=== PATIENT | male | born 1965 | race Caucasian/White ===

== ENCOUNTER 2018-05-30 09:03 | Inpatient (IN) ==
[2018-05-30 09:31] LABS: Baso # (Auto) 0.1 th/mm3 (0.0-0.2); Baso % (Auto) 1.1 % (0.0-2.0); Eos # (Auto) 0.2 th/mm3 (0.0-0.4); Eos % (Auto) 2.3 % (0.0-4.0); Hematocrit 48.5 % (39.0-51.0); Hemoglobin 16.9 gm/dL (13.0-17.0); Lymph # (Auto) 2.1 th/mm3 (1.0-4.8); Lymph % (Auto) 25.4 % (9.0-44.0); Mean Corpuscular HGB Conc 34.8 % (32.0-36.0); Mean Corpuscular Hemoglobin 31.1 pg (27.0-34.0); Mean Corpuscular Volume 89.4 fL (80.0-100.0); Mean Platelet Volume 9.5 fL (7.0-11.0); Mono # (Auto) 0.7 th/mm3 (0.0-0.9); Mono % (Auto) 8.1 % (0.0-8.0); Neut # (Auto) 5.3 th/mm3 (1.8-7.7); Neut % (Auto) 63.1 % (16.0-70.0); Platelet Count 215 th/mm3 (150-450); Red Blood Count 5.42 mil/mm3 (4.50-5.90); Red Cell Distribution Width 13.5 % (11.6-17.2); White Blood Count 8.4 th/mm3 (4.0-11.0)
--- NOTE | 2018-05-30 09:44 | XR ---
EXAM DATE: 05/30/2018 9:40 AM EDT AGE/SEX: 53 years / Male INDICATIONS: . Chest pressure, short of breath. CLINICAL DATA: This is the patient's initial encounter. Patient reports that signs and symptoms have been present for 2 weeks and indicates a pain score of 4/10. MEDICAL/SURGICAL HISTORY: None. None. COMPARISON: [facility], XR CHEST PA AND LAT, 10/27/2017. . FINDINGS: The lungs are clear without infiltrate, nodule, or mass. There is no appreciable pleural effusion fo r technique. Heart and mediastinum are unremarkable. CONCLUSION: No acute cardiopulmonary disease. Electronically signed by: Fausto Liu MD 05/30/2018 9:43 AM EDT
[2018-05-30 09:53] LABS: Blood Urea Nitrogen 14 mg/dL (7-18); Calcium 9.9 mg/dL (8.5-10.1); Carbon Dioxide 26.5 meq/L (21.0-32.0); Glucose,Random 197 mg/dL (74-106); Magnesium 2.2 mg/dL (1.5-2.5)
[2018-05-30 09:56] LABS: Glomerular Filtration Rate 70 mL/min (>89)
[2018-05-30 10:01] LABS: Anion Gap 9 meq/L (5-15); Chloride 105 meq/L (98-107); Potassium 3.9 meq/L (3.5-5.1); Sodium 140 meq/L (136-145)
[2018-05-30 10:08] LABS: Platelet Estimate Normal (Normal); Platelet Morphology Normal (Normal)
[2018-05-30 10:14] LABS: Activated Partial Thrombo Time 27.2 sec (24.3-30.1); Prothrombin Time 10.3 sec (9.8-11.6)
[2018-05-30 10:29] LABS: D-Dimer 0.44 mg/L FEU (0.00-0.50)
--- NOTE | 2018-05-30 11:24 | ED ---
HPI General Chief complaint: Chest Pain Stated complaint: Chest Pain/SOB x 3 weeks Time Seen by Provider: 05/30/18 09:11 Source: patient and family Mode of arrival: ambulatory History of Present Illness HPI narrative: 53yM presenting with chest pain. The patient states that over the past several weeks he's been having intermittent chest "pressure"; this morning, he was going to work when he began to have sudden-onset substernal chest "pressure" which is non-radiating, intermittent, not made better or worse by anything, associated with diaphoresis and dyspnea, lasting minutes to hours and resolving on its own. Denies fever, cough, nausea or vomiting. He has been recently worked up for TIA symptoms and was referred to a head batcher, but has not been seen yet. No recent travel, immobilization, surgery, or history of VTE. Family history significant for mother with CAD/ AL in her 50s and father with CAD in 60s. Related Data Home Medications Medication Instructions Recorded Confirmed aspirin [Aspir-81] 81 mg PO DAILY 05/30/18 05/30/18 ibuprofen 800 mg PO QID PRN 05/30/18 05/30/18 quetiapine 25 mg PO HS 05/30/18 05/30/18 Allergies Allergy/AdvReac Type Severity Reaction Status Date / Time sumatriptan [From Imitrex] Allergy Anaphylaxis Verified 05/30/18 09:39 lactose AdvReac Diarrhea Verified 05/30/18 09:39 Review of Systems Except as stated in HPI: all other systems reviewed are negative Constitutional Reports excessive sweating Eyes Denies blurry vision ENT Denies nasal congestion Cardiovascular Reports chest pain Respiratory Reports dyspnea Gastrointestinal Denies nausea Genitourinary Denies dysuria Musculoskeletal Denies numbness Neurologic Denies confusion Psychiatric Denies confusion PMFSH History History Provided By: Patient Medical History Medical History Diabetes (Acute) TIA (transient ischemic attack) (Acute) Social History Social History Recent Travel in [facility] within the Last 8 Weeks: No Recent Out of Country Travel within the Last 8 Weeks: No Exam Const Other: Diaphoretic, appears anxious HEN[place] Head: normocephalic and atraumatic Face and sinus: normal facial exam Eyes General: appearance normal, both eyes and all related structures Pupils: PERRL Chest Chest: normal inspection of the chest Resp Effort & Inspection: normal respiratory effort Auscultation: no rhonchi and no wheezes Cardio Rate: regular rate Rhythm: regular rhythm GI Inspection: non-distended Palpation: soft and nontender Skin General: no rashes or lesions noted Neuro General: alert, awake, oriented x3 and no focal motor deficits Extrem Other: No lower extremity edema Psych Affect: normal affect Course Initial Documented Vital Signs Temperature 99.1 F 05/30/18 09:15 Pulse Rate 102 H 05/30/18 09:15 Respiratory Rate 18 05/30/18 09:15 Blood Pressure 127/74 05/30/18 09:15 Pulse Oximetry 97 05/30/18 09:15 Last Documented Vital Signs Temperature 99.1 F 05/30/18 09:15 Pulse Rate 85 05/30/18 09:21 Respiratory Rate 18 05/30/18 09:15 Blood Pressure 127/74 05/30/18 09:15 Pulse Oximetry 94 L 05/30/18 09:21 Clinical Decision Support HEART Score Questions History: Moderately suspicious EKG: Non-specific repolarization disturbance Age: 45-64 years Risk Factors: 1-2 Risk Factors Initial Troponin: Normal Limit Heart Score HEART Score: 4 Wells' Criteria Questions Clinical Signs and Symptoms of DVT: No PE is primary diagnosis or equally likely: No Heart Rate greater than 100: Yes Immobilized at least 3 days or Surgery in previous 4 weeks: No Previous, objectively diagnosed PE or DVT: No Hemoptysis: No Malignancy with treatment within 6 months or palliative: No Wells' Criteria Score Wells' Criteria Score: 1.5 Medical Decision Making MDM Narrative Medical decision making narrative: Assessment: 53yM presenting with chest pain Plan: EKG and monitor Labs, including trop CXR ASA (patient already took 81 mg prior to arrival) Nitro Reassess Addendum: Patient's HEART score is 4, initial trop negative, reports improvement in pain after receiving SL nitro x 1 dose. Will give 1/2" nitropaste. I discussed the results of all labs and imaging with the patient as well as plan to keep him for chest pain obs/ serial troponins/ cardiac monitoring; he understands and agrees. Case discussed with GOGO KELLY, patient to be observed under Dr. Kahn. Differential Diagnosis Differential Diagnosis: Differential diagnosis includes, but is not limited to: ACS, arrhythmia, pneumonia, pleuritis, GERD Lab Data Lab results reviewed: Yes I reviewed the patient's lab results. Result diagrams: 05/30/18 09:17 05/30/18 09:17 Lab Results 05/30/18 05/30/18 05/30/18 Range/Units 09:17 09:17 09:17 CBC w Diff Slide review pending WBC 8.4 (4.0-11.0) th/mm3 RBC 5.42 (4.50-5.90) mil/mm3 Hgb 16.9 (13.0-17.0) gm/dL Hct 48.5 (39.0-51.0) % MCV 89.4 (80.0-100.0) fL MCH 31.1 (27.0-34.0) pg MCHC 34.8 (32.0-36.0) % RDW 13.5 (11.6-17.2) % Plt Count 215 (150-450) th/mm3 MPV 9.5 (7.0-11.0) fL Neut % (Auto) 63.1 (16.0-70.0) % Lymph % (Auto) 25.4 (9.0-44.0) % Chambers % (Auto) 8.1 H (0.0-8.0) % Eos % (Auto) 2.3 (0.0-4.0) % Baso % (Auto) 1.1 (0.0-2.0) % Neut # (Auto) 5.3 (1.8-7.7) th/mm3 Lymph # (Auto) 2.1 (1.0-4.8) th/mm3 Chambers # (Auto) 0.7 (0.0-0.9) th/mm3 Eos # (Auto) 0.2 (0.0-0.4) th/mm3 Baso # (Auto) 0.1 (0.0-0.2) th/mm3 WBC Differential . Diff Scan Auto diff confirmed Differential Comment . Platelet Estimate Normal (Normal) Platelet Morphology Normal (Normal) PT 10.3 (9.8-11.6) sec INR 1.0 Ratio APTT 27.2 (24.3-30.1) sec D-Dimer Quant (PE/DVT) 0.44 (0.00-0.50) mg/L FEU Sodium 140 (136-145) meq/L Potassium 3.9 (3.5-5.1) meq/L Chloride 105 (98-107) meq/L Carbon Dioxide 26.5 (21.0-32.0) meq/L Anion Gap 9 (5-15) meq/L BUN 14 (7-18) mg/dL Creatinine 1.10 (0.60-1.30) mg/dL Estimated GFR 70 L (>89) mL/min Random Glucose 197 H (74-106) mg/dL Calcium 9.9 (8.5-10.1) mg/dL Magnesium 2.2 (1.5-2.5) mg/dL Troponin I Less than 0.02 L (0.02-0.05) ng/mL Imaging Data Radiologist's impression: Chest X-Ray 05/30/18 09:21 CONCLUSION: No acute cardiopulmonary disease. ECG Data Interpretation: Rate: 100 BPM Rhythm: Sinus [place]: Normal Intervals: LAFB, QTc 385 ms Q waves: II, III, aVF T waves: Inverted in III ST segments: No elevations or depressions Impression: Non-specific EKG, no changes as compared to EKG from 12/27/2012. Discharge Plan Discharge Disposition Patient Disposition: 30 Still Patient Discharge Condition Condition: Stable Discharge Details Diagnosis: Chest pain Physicians Team ED Provider: Dyana Hughes Primary Care Provider: Francisco Burnham Rxs /Orders / Referrals /Forms Prescriptions: No Action quetiapine 25 mg Tablet 25 mg PO HS RF: 0 aspirin [Aspir-81] 81 mg Tablet,Delayed Release (Dr/Ec) 81 mg PO DAILY RF: 0 ibuprofen 800 mg Tablet 800 mg PO QID PRN (Reason: Pain) RF: 0 Discharge Instructions Patient Printed Instructions: Chest Pain (ED) Status ED Status: With Doctor
--- NOTE | 2018-05-30 12:09 | P.HP ---
History of Present Illness Primary Care Physician: Francisco Burnham Inpatient Certification: I certify that the inpatient services were ordered in accordance with Medicare regulations governing the order. This includes certification that hospital inpatient services are reasonable and necessary and in the case of services not specified as inpatient-only under 42 CFR 419.22(n), that they are appropriately provided as inpatient services in accordance to with the 2-midnight benchmark under 43 CFR 412.3(e) PMFSH - History History Provided By: Patient - Medical History Medical History: Medical History (Last Updated 05/30/18 @ 11:27 by Dyana Hughes DO) Diabetes TIA (transient ischemic attack) - Tobacco History Smoking Status: Never smoker - Alcohol History How Often Do You Have a Drink Containing Alcohol: Never - Substance Use History Substance History: No History of Abuse - Travel History Recent Travel in the [place] Within the Last 8 Weeks: No Recent Travel Out of the Country Within the Last 8 Weeks: No - Immunization History Tetanus Immunization: Unsure Hx Influenza Vaccine This Season: No Medications and Allergies Active Medications: Active Medications Aspirin (Aspirin) 325 mg PO DAILY ALMA Nitroglycerin (Nitrostat Sl) 0.4 mg SL Q5M PRN PRN Reason: CHEST PAIN Quetiapine Fumarate (Seroquel) 25 mg PO HS ALMA Sodium Chloride (Ns Flush) 2 ml IV.FLUSH UNSCH PRN PRN Reason: FLUSH AFTER USING IV ACCESS Sodium Chloride (Ns Flush) 2 ml IV.FLUSH BID ALMA Sodium Chloride (Ns Flush) 2 ml IV.FLUSH PRN PRN PRN Reason: FLUSH AFTER USING IV ACCESS Sodium Chloride (Ns Flush) 2 ml IV.FLUSH BID ALMA Sodium Chloride (Ns Flush) 2 ml IV.FLUSH PRN PRN PRN Reason: FLUSH AFTER USING IV ACCESS Allergies Allergy/AdvReac Type Severity Reaction Status Date / Time sumatriptan [From Imitrex] Allergy Anaphylaxis Verified 05/30/18 09:39 lactose AdvReac Diarrhea Verified 05/30/18 09:39 Home Medications Medication Instructions Recorded Confirmed Type aspirin [Aspir-81] 81 mg PO DAILY 05/30/18 05/30/18 History ibuprofen 800 mg PO QID PRN 05/30/18 05/30/18 History quetiapine 25 mg PO HS 05/30/18 05/30/18 History Exam Vital signs: Vital Signs 05/30/18 09:15 05/30/18 09:21 05/30/18 12:04 Temperature 99.1 F Pulse Rate 102 H 85 82 Respiratory Rate 18 16 Blood Pressure 127/74 143/76 H Pulse Oximetry 97 94 L 97 Intake & Output 05/29/18 05/30/18 05/30/18 18:59 06:59 18:59 Weight 125 kg Results - Labs CBC & Chem 7: 05/30/18 09:17 05/30/18 09:17 Labs: Laboratory Results - last 24 hr 05/30/18 05/30/18 05/30/18 09:17 09:17 09:17 CBC w Diff Slide review pending WBC 8.4 RBC 5.42 Hgb 16.9 Hct 48.5 MCV 89.4 MCH 31.1 MCHC 34.8 RDW 13.5 Plt Count 215 MPV 9.5 Neut % (Auto) 63.1 Lymph % (Auto) 25.4 [place] % (Auto) 8.1 H Eos % (Auto) 2.3 Baso % (Auto) 1.1 Neut # (Auto) 5.3 Lymph # (Auto) 2.1 [place] # (Auto) 0.7 Eos # (Auto) 0.2 Baso # (Auto) 0.1 WBC Differential . Diff Scan Auto diff confirmed Differential Comment . Platelet Estimate Normal Platelet Morphology Normal PT 10.3 INR 1.0 APTT 27.2 D-Dimer Quant (PE/DVT) 0.44 Sodium 140 Potassium 3.9 Chloride 105 Carbon Dioxide 26.5 Anion Gap 9 BUN 14 Creatinine 1.10 Estimated GFR 70 L Random Glucose 197 H Calcium 9.9 Magnesium 2.2 Troponin I Less than 0.02 L - Imaging Impressions Chest X-Ray 05/30/18 09:21 CONCLUSION: No acute cardiopulmonary disease. Caprini VTE Risk Assessment Caprini Risk Assessment Model: Point Value = 1 Point Value = 2 Point Value = 3 Point Value = 5 Age 41-60 Minor surgery BMI > 25 kg/m2 Swollen legs Varicose veins or History of unexplained or recurrent spontaneous Oral contraceptives or hormone replacement Sepsis (< 1 month) Serious lung disease, including pneumonia (< 1 month) Abnormal pulmonary function Acute myocardial infarction Congestive heart failure (< 1 month) History of inflammatory bowel disease Medical patient at bed rest Age 61-74 Arthroscopic surgery Major open surgery (> 45 min) Laparoscopic surgery (> 45 min) Malignancy Confined to bed (> 72 hours) Immobilizing plaster cast Central venous access Age >= 75 History of VTE Family history of VTE Factor V Leiden Prothrombin [id number] Lupus anticoagulant Anticardiolipin antibodies Elevated serum homocysteine Heparin-induced thrombocytopenia Other congenital or acquired thrombophilia Stroke (< 1 month) Elective arthroplasty Hip, pelvis, or leg fracture Acute spinal cord injury (< 1 month) Prophylaxis Regimen: Total Risk Factor Score Risk Level Prophylaxis Regimen 0-1 Low Early ambulation 2 Moderate Order ONE of the following: *Sequential Compression Device (SCD) *Heparin 5000 units SQ BID 3-4 Higher Order ONE of the following medications: *Heparin 5000 units SQ TID *Enoxaparin/Lovenox 40 mg SQ daily (WT < 150 kg, CrCl > 30 mL/min) *Enoxaparin/Lovenox 30 mg SQ daily (WT < 150 kg, CrCl > 10-29 mL/min) *Enoxaparin/Lovenox 30 mg SQ BID (WT < 150 kg, CrCl > 30 mL/min) AND/OR *Sequential Compression Device (SCD) 5 or more Highest Order ONE of the following medications: *Heparin 5000 units SQ TID (Preferred with Epidurals) *Enoxaparin/Lovenox 40 mg SQ daily (WT < 150 kg, CrCl > 30 mL/min) *Enoxaparin/Lovenox 30 mg SQ daily (WT < 150 kg, CrCl > 10-29 mL/min) *Enoxaparin/Lovenox 30 mg SQ BID (WT < 150 kg, CrCl > 30 mL/min) AND *Sequential Compression Device (SCD)
--- NOTE | 2018-05-30 12:46 | P.HPIM ---
History of Present Illness Primary Care Physician: Francisco Burnham Chief Complaint: Chest discomfort History of Present Illness: Patient is a 53-year-old gentleman with a history of diverticulitis, hepatitis a and fatty liver, migraine and anxiety who presents to the emergency room department with a complaint of chest pain. He states the pain started initially 2 months ago with episodes of mid substernal chest pressure which is nonradiating and last up to 2 hours. The episodes are associated with shortness of breath and heart racing. He denies any radiation of the pressure or pain, diaphoresis. He has such episodes occur every day there does not appear to be any exertional component. Patient works out side with heavy equipment and has no chest pain correlating with these activities. The chest pain appears to occur at rest intermittently. It resolved spontaneously usually and today it was relieved with Nitropaste. It was not improved with nitro sublingual. On review of his EKG appears to be normal sinus rhythm without ischemic changes and cardiac troponins are negative so far, my review of his chest x-ray there is no cardiopulmonary acute finding. Patient is recommended for further observation due to atypical chest pain - Diagnosis (1) Atypical chest pain (2) SOB (shortness of breath) (3) Musculoskeletal pain (4) Obesity (BMI 30-39.9) (5) Anxiety Inpatient Certification: I certify that the inpatient services were ordered in accordance with Medicare regulations governing the order. This includes certification that hospital inpatient services are reasonable and necessary and in the case of services not specified as inpatient-only under 42 CFR 419.22(n), that they are appropriately provided as inpatient services in accordance to with the 2-midnight benchmark under 43 CFR 412.3(e) Review of Systems All other systems reviewed negative except as stated in [facility]PI [facility] - History History Provided By: Patient - Medical History Medical History: Medical History (Last Updated 05/30/18 @ 12:44 by Yu Winkler MD) Injury of left lower arm (Acute) Anxiety Diabetes Diverticulitis Fatty liver Hepatitis Joint pain Migraine TIA (transient ischemic attack) - Family History Family History: Family History (Last Updated 05/30/18 @ 12:45 by Yu Winkler MD) Other Brain aneurysm CAD (coronary artery disease) - Tobacco History Smoking Status: Former smoker (30 pack year, quit 3 yrs ago) - Alcohol History How Often Do You Have a Drink Containing Alcohol: Never - Substance Use History Substance History: No History of Abuse - Travel History Recent Travel in the [place] Within the Last 8 Weeks: No Recent Travel Out of the Country Within the Last 8 Weeks: No - Immunization History Tetanus Immunization: Unsure Hx Influenza Vaccine This Season: No Medications and Allergies Active Medications: Active Medications Aspirin (Aspirin) 325 mg PO DAILY ALMA Nitroglycerin (Nitrostat Sl) 0.4 mg SL Q5M PRN PRN Reason: CHEST PAIN Quetiapine Fumarate (Seroquel) 25 mg PO HS ALMA Sodium Chloride (Ns Flush) 2 ml IV.FLUSH UNSCH PRN PRN Reason: FLUSH AFTER USING IV ACCESS Sodium Chloride (Ns Flush) 2 ml IV.FLUSH BID ALMA Sodium Chloride (Ns Flush) 2 ml IV.FLUSH PRN PRN PRN Reason: FLUSH AFTER USING IV ACCESS Sodium Chloride (Ns Flush) 2 ml IV.FLUSH BID ALMA Sodium Chloride (Ns Flush) 2 ml IV.FLUSH PRN PRN PRN Reason: FLUSH AFTER USING IV ACCESS Allergies Allergy/AdvReac Type Severity Reaction Status Date / Time sumatriptan [From Imitrex] Allergy Anaphylaxis Verified 05/30/18 09:39 lactose AdvReac Diarrhea Verified 05/30/18 09:39 Home Medications Medication Instructions Recorded Confirmed Type aspirin [Aspir-81] 81 mg PO DAILY 05/30/18 05/30/18 History ibuprofen 800 mg PO QID PRN 05/30/18 05/30/18 History quetiapine 25 mg PO HS 05/30/18 05/30/18 History Exam Vital signs: Vital Signs 05/30/18 09:15 05/30/18 09:21 05/30/18 12:04 Temperature 99.1 F Pulse Rate 102 H 85 82 Respiratory Rate 18 16 Blood Pressure 127/74 143/76 H Pulse Oximetry 97 94 L 97 Intake & Output 05/29/18 05/30/18 05/30/18 18:59 06:59 18:59 Weight 125 kg Narrative: GENERAL: Patient calm resting and without complaints SKIN: Warm and dry. No rashes or ecchymotic injuries EYES: Pupils equal and round. No scleral icterus. No injection or drainage. ENT: External ear exam normal. No acute nasal bleeding or discharge. Mucous membranes pink and moist. CARDIOVASCULAR: Regular rate and rhythm. No murmurs gallops or rubs appreciated RESPIRATORY: Good air flow and effort without accessory muscle use. Clear to auscultation. Breath sounds equal bilaterally. GASTROINTESTINAL: Abdomen soft, non-tender, nondistended. Hepatic and splenic margins not palpable. MUSCULOSKELETAL: Extremities without clubbing, cyanosis, or edema. No obvious deformities. NEUROLOGICAL: Awake and alert. No obvious cranial nerve deficits. Motor grossly within normal limits. Five out of 5 muscle strength in the arms and legs. Normal speech. Results - Labs CBC & Chem 7: 05/30/18 09:17 05/30/18 09:17 Labs: Short CBC 05/30/18 Range/Units 09:17 WBC 8.4 (4.0-11.0) th/mm3 Hgb 16.9 (13.0-17.0) gm/dL Hct 48.5 (39.0-51.0) % Plt Count 215 (150-450) th/mm3 BMP 05/30/18 09:17 Sodium 140 Potassium 3.9 Chloride 105 Carbon Dioxide 26.5 BUN 14 Creatinine 1.10 Calcium 9.9 Cardiac Enzymes 05/30/18 Range/Units 09:17 Troponin I Less than 0.02 L (0.02-0.05) ng/mL - Imaging Impressions Chest X-Ray 05/30/18 09:21 CONCLUSION: No acute cardiopulmonary disease. Caprini VTE Risk Assessment Caprini VTE Risk Assessment: No/Low Risk (score <= 1) Caprini Risk Assessment Model: Point Value = 1 Point Value = 2 Point Value = 3 Point Value = 5 Age 41-60 Minor surgery BMI > 25 kg/m2 Swollen legs Varicose veins or History of unexplained or recurrent spontaneous Oral contraceptives or hormone replacement Sepsis (< 1 month) Serious lung disease, including pneumonia (< 1 month) Abnormal pulmonary function Acute myocardial infarction Congestive heart failure (< 1 month) History of inflammatory bowel disease Medical patient at bed rest Age 61-74 Arthroscopic surgery Major open surgery (> 45 min) Laparoscopic surgery (> 45 min) Malignancy Confined to bed (> 72 hours) Immobilizing plaster cast Central venous access Age >= 75 History of VTE Family history of VTE Factor V Leiden Prothrombin [id number] Lupus anticoagulant Anticardiolipin antibodies Elevated serum homocysteine Heparin-induced thrombocytopenia Other congenital or acquired thrombophilia Stroke (< 1 month) Elective arthroplasty Hip, pelvis, or leg fracture Acute spinal cord injury (< 1 month) Prophylaxis Regimen: Total Risk Factor Score Risk Level Prophylaxis Regimen 0-1 Low Early ambulation 2 Moderate Order ONE of the following: *Sequential Compression Device (SCD) *Heparin 5000 units SQ BID 3-4 Higher Order ONE of the following medications: *Heparin 5000 units SQ TID *Enoxaparin/Lovenox 40 mg SQ daily (WT < 150 kg, CrCl > 30 mL/min) *Enoxaparin/Lovenox 30 mg SQ daily (WT < 150 kg, CrCl > 10-29 mL/min) *Enoxaparin/Lovenox 30 mg SQ BID (WT < 150 kg, CrCl > 30 mL/min) AND/OR *Sequential Compression Device (SCD) 5 or more Highest Order ONE of the following medications: *Heparin 5000 units SQ TID (Preferred with Epidurals) *Enoxaparin/Lovenox 40 mg SQ daily (WT < 150 kg, CrCl > 30 mL/min) *Enoxaparin/Lovenox 30 mg SQ daily (WT < 150 kg, CrCl > 10-29 mL/min) *Enoxaparin/Lovenox 30 mg SQ BID (WT < 150 kg, CrCl > 30 mL/min) AND *Sequential Compression Device (SCD) Assessment and Plan - Assessment (1) Atypical chest pain Code(s): R07.89 - Other chest pain Status: Acute Plan: Repeat serial troponin and EKG Follow-up on telemetry Likely nuclear stress test in a.m. Risk factors include obesity, family history of first-degree relative with premature cardiac disease, current aspirin use Other etiology could be costochondritis, GERD Medicines as needed for atypical chest pain prescribed such as nitro, morphine, oxygen, etc (2) SOB (shortness of breath) Code(s): R06.02 - Shortness of breath Status: Acute Plan: Etiology unclear, patient without edema, appears to have large abdomen which may contribute to shortness of breath while lying flat Continue to follow (3) Musculoskeletal pain Code(s): M79.1 - Myalgia Status: Acute Plan: Patient takes aspirin and ibuprofen He was told to avoid Tylenol We will try Ultram as needed to avoid gastric irritation (4) Obesity (BMI 30-39.9) Code(s): E66.9 - Obesity, unspecified Status: Acute Plan: Patient will require lifestyle modification with and improve exercise and diet Follow-up with primary care physician (5) Anxiety Code(s): F41.9 - Anxiety disorder, unspecified Status: Acute - Plan Discharge Planning: Pending stress test
[2018-05-30 13:11] LABS: Creatine Kinase 82 U/L (39-308)
[2018-05-30 15:58] LABS: Creatine Kinase 96 U/L (39-308)
--- NOTE | 2018-05-30 18:27 | ECG ---
Date Performed: 05/30/2018 Time Performed: 09:10:07 PTAGE: 53 years EKG: SINUS TACHYCARDIA PATTERN CONSISTENT WITH PULMONARY DISEASE LEFT ANTERIOR FASCICULAR BLOCK ABNORMAL ECG Compared to PREVIOUS TRACING , sinus rate is slightly faster. PREVIOUS TRACIN12/27/2012 18.45 DOCTOR: Javy Cueva Interpretating Date/Time 05/30/2018 18:25:11
[2018-05-30] MEDS: Acetaminophen 325 MG Tablet PO PRN (19:36)
[2018-05-30] MEDS: QUEtiapine 25 MG Tablet PO SCH (22:31)
[2018-05-31] MEDS: Aspirin 325 MG Tablet PO SCH (08:06)
[2018-05-31] MEDS ORDERED: Regadenoson Inj 0.4 MG/5 ML Syringe IV.PUSH ONE (10:13)
--- NOTE | 2018-05-31 11:46 | NM ---
EXAM DATE: 05/31/2018 11:29 AM EDT AGE/SEX: 53 years / Male INDICATIONS:Angina. . Substernal chest pain. CLINICAL DATA: This is the patient's initial encounter. Patient reports that signs and symptoms have been present for 1 day and indicates a pain score of 4/10. MEDICAL/SURGICAL HISTORY: Diabetes mellitus type II. Transient ischemic attack. None. COMPARISON: No prior exams available for comparison. DOSE: 11 mCi Tc 99m Myoview at rest 35 mCi [id number] at stress 0.4 mg Lexiscan STRESS SYMPTOMS: Short of breath and chest pain. EJECTION FRACTION: 53 % TECHNIQUE: The patient underwent pharmacologic stress with infusion of prescribed dose. Continuous ECG tracing was monitored during stress. Gated SPECT imaging was performed after stress and conventi onal SPECT imaging was performed at rest. The examination was performed on a SPECT/CT scanner, both attenuation and non-corrected datasets were reviewed. FINDINGS: Distribution: The maximum perfused segment at stress is in the posterior wall. Perfusion Study: The pattern of perfusion at stress demonstrates reduction in perfusion to the ante rior wall and parts of the anterolateral wall demonstrates redistribution the rest. Gated Study: There are intact wall motion and wall thickening without hypokinetic or dyskinetic segm ents. The ejection fraction is calculated at 53%. RISK CATEGORY: Intermediate (1-3 % Annual Mortality Rate) CONCLUSION: 1. Slight ischemia in the anterolateral wall. Electronically signed by: Fausto Liu MD 05/31/2018 11:45 AM EDT
--- NOTE | 2018-05-31 12:08 | P.PNIM ---
Subjective Interval history: She seen and evaluated in follow-up for atypical chest pain. Cardiac stress test is abnormal patient will require further cardiac evaluation. Discussed with patient and spouse Physical Exam Vital signs: Vital Signs 05/30/18 15:56 05/30/18 20:00 05/30/18 22:40 Temperature 97.5 F L 97.8 F Pulse Rate 78 76 85 Respiratory Rate 17 20 Blood Pressure 111/61 126/68 Pulse Oximetry 97 95 05/31/18 01:52 05/31/18 04:39 05/31/18 08:00 Temperature 97.4 F L 96.3 F L 97.6 F Pulse Rate 82 77 67 Respiratory Rate 20 20 21 Blood Pressure 114/56 L 101/51 L 127/76 Pulse Oximetry 97 97 99 Intake & Output 05/30/18 05/31/18 05/31/18 18:59 06:59 18:59 Intake Total 720 / 720 0 / 0 Balance 720 / 720 0 / 0 Weight 126.5 kg 126.5 kg Intake: Oral 720 / 720 0 / 0 Other: # Voids 3 2 # Bowel Movements 0 Narrative: GENERAL: Patient calm resting and without complaints SKIN: Warm and dry. No rashes or ecchymotic injuries EYES: Pupils equal and round. No scleral icterus. No injection or drainage. ENT: External ear exam normal. No acute nasal bleeding or discharge. Mucous membranes pink and moist. CARDIOVASCULAR: Regular rate and rhythm. No murmurs gallops or rubs appreciated RESPIRATORY: Good air flow and effort without accessory muscle use. Clear to auscultation. Breath sounds equal bilaterally. GASTROINTESTINAL: Abdomen soft, non-tender, nondistended. Hepatic and splenic margins not palpable. MUSCULOSKELETAL: Extremities without clubbing, cyanosis, or edema. No obvious deformities. NEUROLOGICAL: Awake and alert. No obvious cranial nerve deficits. Motor grossly within normal limits. Five out of 5 muscle strength in the arms and legs. Normal speech. Results - Labs CBC & Chem 7: 05/30/18 09:17 05/30/18 09:17 Laboratory Results - last 24 hr 05/30/18 05/30/18 12:38 15:16 Total Creatine Kinase 82 96 Troponin I Less than 0.02 L Less than 0.02 L - Imaging Impressions Myocardial Perfusion Scan Nuc Med 05/31/18 00:00 CONCLUSION: 1. Slight ischemia in the anterolateral wall. Assessment and Plan - Assessment (1) Atypical chest pain Code(s): R07.89 - Other chest pain Status: Acute Plan: Cardiac stress test abnormal, cardiac consultation pending for possible heart catheterization Continue supportive care (2) SOB (shortness of breath) Code(s): R06.02 - Shortness of breath Status: Acute Plan: EF on stress tests within normal limits, continue supportive care and oxygen as needed Patient rather sedentary lifestyle (3) Musculoskeletal pain Code(s): M79.1 - Myalgia Status: Acute Plan: Patient takes aspirin and ibuprofen He was told to avoid Tylenol Ultram as needed (4) Obesity (BMI 30-39.9) Code(s): E66.9 - Obesity, unspecified Status: Acute Plan: Patient will require lifestyle modification with and improve exercise and diet Follow-up with primary care physician (5) Anxiety Code(s): F41.9 - Anxiety disorder, unspecified Status: Acute - Plan Discharge Planning: Pending cardiac consultation
--- NOTE | 2018-05-31 16:38 | TR ---
Date Performed: 05/31/2018 Time Performed: 10:33:31 DOCTOR: Vashti Richard DRUG LIST: CLINICAL HISTORY: REASON FOR TEST: REASON FOR ENDING: OBSERVATION: CONCLUSION: Lexiscan stress test was performed under standard four minute protocol. Radionuclid e was injected one minute prior to ending the test. No electrocardiographic abormalities were present to suggest ischemia. Nuclear imaging and interpretation are pending. COMMENTS:
--- NOTE | 2018-05-31 21:05 | ECG ---
Date Performed: 05/30/2018 Time Performed: 15:13:12 PTAGE: 53 years EKG: Sinus rhythm INDETERMINATE AXIS LOW QRS VOLTAGE IN EXTREMITY LEADS LEFT ANTERIOR FASCICULAR BLOCK ABNORMAL ECG PREVIOUS TRACING : 05/30/2018 11.52 No significant change when compared with previous DOCTOR: Reece Pacheco Interpretating Date/Time 05/31/2018 21:03:45
--- NOTE | 2018-05-31 21:11 | ECG ---
Date Performed: 05/30/2018 Time Performed: 11:52:29 PTAGE: 53 years EKG: Sinus rhythm PATTERN CONSISTENT WITH PULMONARY DISEASE LEFT ANTERIOR FASCICULAR BLOCK ABNORMAL ECG PREVIOUS TRACING : 05/30/2018 09.10 No significant change when compared with previous DOCTOR: Reece Pacheco Interpretating Date/Time 05/31/2018 21:09:43
[2018-05-31] MEDS: Acetaminophen 325 MG Tablet PO PRN (22:21)
[2018-05-31] MEDS: QUEtiapine 25 MG Tablet PO SCH (22:23)
--- NOTE | 2018-06-01 08:01 | P.CONCA ---
<Peyman Caal - Last Filed: 06/01/18 08:25> History of Present Illness Primary Care Provider: Francisco Burnham Chief Complaint: Chest discomfort History of Present Illness: 53-year-old male with past medical history of possible TIAs who presented for chest pain. The patient states for the past couple months he has been having episodes of heavy chest pain with associated shortness of breath. Pain can occur while he is walking, but usually occurs at rest. Pain can last up to 15 20 minutes. Admitted to the chest pain center with unremarkable serial cardiac enzymes and EKGs. A Lexiscan was done which showed slight ischemia in the anterolateral wall and for this we are consulted. Patient are also quite concerned because patient has been having transient episodes of difficulty speaking as well. Review of Systems All other systems reviewed negative except as stated [facility] - History History Provided By: Patient, Family Member - Medical History Medical History: Medical History (Last Updated 05/30/18 @ 12:44 by Yu Winkler MD) Injury of left lower arm (Acute) Anxiety Diabetes Diverticulitis Fatty liver Hepatitis Joint pain Migraine TIA (transient ischemic attack) - Family History Family History: Family History (Last Updated 05/30/18 @ 12:45 by Yu Winkler MD) Other Brain aneurysm CAD (coronary artery disease) - Tobacco History Second Hand Smoke Exposure: No Smoking Status: Former smoker Number of Pack Years (if former smoker): 30 - Alcohol History How Often Do You Have a Drink Containing Alcohol: Never - Substance Use History Substance History: No History of Abuse - Travel History Recent Travel in the [place] Within the Last 8 Weeks: No Recent Travel Out of the Country Within the Last 8 Weeks: No - Immunization History Tetanus Immunization: Unsure Hx Influenza Vaccine This Season: No Medications and Allergies Allergies Allergy/AdvReac Type Severity Reaction Status Date / Time sumatriptan [From Imitrex] Allergy Anaphylaxis Verified 05/30/18 09:39 lactose AdvReac Diarrhea Verified 05/30/18 09:39 Home Medications Medication Instructions Recorded Confirmed Type aspirin [Aspir-81] 81 mg PO DAILY 05/30/18 05/30/18 History ibuprofen 800 mg PO QID PRN 05/30/18 05/30/18 History quetiapine 25 mg PO HS 05/30/18 05/30/18 History Active Medications: Active Medications Acetaminophen (Tylenol) 650 mg PO Q6H PRN PRN Reason: HEADACHE OR FEVER Last Admin: 05/31/18 22:21 Dose: 650 mg Aspirin (Aspirin) 325 mg PO DAILY [facility] Last Admin: 05/31/18 08:06 Dose: 325 mg Nitroglycerin (Nitrostat Sl) 0.4 mg SL Q5M PRN PRN Reason: CHEST PAIN Last Admin: 05/30/18 14:48 Dose: 0.4 mg Pantoprazole Sodium (Protonix) 40 mg PO DAILY [facility] Last Admin: 05/31/18 08:05 Dose: 40 mg Quetiapine Fumarate (Seroquel) 25 mg PO HS [facility] Last Admin: 05/31/18 22:23 Dose: Not Given Sodium Chloride (Ns Flush) 2 ml IV.FLUSH BID [facility] Last Admin: 05/31/18 22:21 Dose: 2 ml Sodium Chloride (Ns Flush) 2 ml IV.FLUSH PRN PRN PRN Reason: FLUSH AFTER USING IV ACCESS Exam Vital signs: Vital Signs 05/31/18 08:00 05/31/18 12:00 05/31/18 16:00 Temperature 97.6 F 97.7 F 97.8 F Pulse Rate 61 78 91 H Respiratory Rate 21 21 21 Blood Pressure 127/76 135/76 130/86 Pulse Oximetry 99 97 95 05/31/18 20:00 05/31/18 21:00 06/01/18 00:00 Temperature 97.3 F L 97.6 F Pulse Rate 104 H 108 H 96 H Respiratory Rate 20 20 Blood Pressure 118/63 154/75 H Pulse Oximetry 97 92 L 06/01/18 04:00 Temperature 96.7 F L Pulse Rate 77 Respiratory Rate Blood Pressure 109/54 L Pulse Oximetry 98 Intake & Output 05/31/18 06/01/18 06/01/18 18:59 06:59 18:59 Intake Total 0 / 0 Output Total 700 / 700 Balance -700 / -700 Weight 278 lb 14.156 oz Intake: Oral 0 / 0 Output: Urine 700 / 700 Other: # Voids 3 Narrative: GENERAL: Well-developed well-nourished. In no acute distress. NECK: No carotid bruits. No JVD. CARDIOVASCULAR: Regular rate and rhythm. No murmur appreciated. RESPIRATORY: No accessory muscle use. Clear to auscultation. Breath sounds equal bilaterally. MUSCULOSKELETAL: No clubbing or cyanosis. No edema. NEUROLOGICAL: Awake and alert. Normal speech. Results 05/30/18 09:17 05/30/18 09:17 Intake and Output 05/31/18 06/01/18 06/01/18 22:59 06:59 14:59 Output Total 700 / 700 Balance -700 / -700 Output: Urine 700 / 700 Other: # Voids 3 Weight 278 lb 14.156 oz Assessment and Plan - Plan 53-year-old gentleman with a history of possible TIA, diverticulitis, hepatitis a and fatty liver, migraine and anxiety who presented for chest pain Chest pain: Lexiscan showed slight ischemic defect. Would recommend trial of medical management, discussed with Dr. Matthews who agrees with med management and close outpatient follow up; however patient and are quite concerned with the findings and want to talk to cardiology attending prior to making any decisions. Continue aspirin. Start metoprolol. Check lipids/LFTs and plan to start statin. Transient speech difficulties: Possible recent TIAs. Workup per primary team. Discussed Condition With: Patient and , RN, Dr. Matthews <Richard Matthews - Last Filed: 06/01/18 17:51> History of Present Illness Primary Care Provider: Francisco Burnham [facility] - Medical History Medical History: Medical History (Last Updated 05/30/18 @ 12:44 by Yu Winkler MD) Injury of left lower arm (Acute) Anxiety Diabetes Diverticulitis Fatty liver Hepatitis Joint pain Migraine TIA (transient ischemic attack) - Family History Family History: Family History (Last Updated 05/30/18 @ 12:45 by Yu Winkler MD) Other Brain aneurysm CAD (coronary artery disease) Medications and Allergies Active Medications: Active Medications Acetaminophen (Tylenol) 650 mg PO Q6H PRN PRN Reason: HEADACHE OR FEVER Last Admin: 06/01/18 13:35 Dose: 650 mg Aspirin (Aspirin) 325 mg PO DAILY [facility] Last Admin: 06/01/18 08:59 Dose: 325 mg Metoprolol Tartrate (Lopressor) 25 mg PO BID [facility] Last Admin: 06/01/18 09:00 Dose: 25 mg Nitroglycerin (Nitrostat Sl) 0.4 mg SL Q5M PRN PRN Reason: CHEST PAIN Last Admin: 05/30/18 14:48 Dose: 0.4 mg Pantoprazole Sodium (Protonix) 40 mg PO DAILY [facility] Last Admin: 06/01/18 09:00 Dose: 40 mg Quetiapine Fumarate (Seroquel) 25 mg PO HS [facility] Last Admin: 05/31/18 22:23 Dose: Not Given Sodium Chloride (Ns Flush) 2 ml IV.FLUSH BID [facility] Last Admin: 06/01/18 10:12 Dose: 2 ml Sodium Chloride (Ns Flush) 2 ml IV.FLUSH PRN PRN PRN Reason: FLUSH AFTER USING IV ACCESS Exam Vital signs: Vital Signs 05/31/18 20:00 05/31/18 21:00 06/01/18 00:00 Temperature 97.3 F L 97.6 F Pulse Rate 104 H 108 H 96 H Respiratory Rate 20 20 Blood Pressure 118/63 154/75 H Pulse Oximetry 97 92 L 06/01/18 04:00 06/01/18 08:00 06/01/18 12:00 Temperature 96.7 F L 97.7 F 97.0 F L Pulse Rate 77 70 76 Respiratory Rate 18 18 Blood Pressure 109/54 L 134/79 119/79 Pulse Oximetry 98 18 L 99 06/01/18 16:00 Temperature 97.6 F Pulse Rate 72 Respiratory Rate 18 Blood Pressure 116/66 Pulse Oximetry 98 Intake & Output 05/31/18 06/01/18 06/01/18 18:59 06:59 18:59 Intake Total 0 / 0 Output Total 700 / 700 Balance -700 / -700 Weight 126.5 kg Intake: Oral 0 / 0 Output: Urine 700 / 700 Other: # Voids 3 Date of Last Bowel Movement 05/31/18 Results 05/30/18 09:17 06/01/18 08:35 Cardiac Enzymes 06/01/18 Range/Units 08:35 AST 117 H (15-37) U/L Lipids 06/01/18 Range/Units 08:35 Triglycerides 88 (42-150) mg/dL Cholesterol 149 (120-200) mg/dL HDL Cholesterol 42.0 (40.0-60.0) mg/dL Cholesterol/HDL Ratio 3.54 Ratio Comprehensive Metabolic Panel 06/01/18 06/01/18 Range/Units 08:35 08:35 Sodium 137 (136-145) meq/L Potassium 3.8 (3.5-5.1) meq/L Chloride 103 (98-107) meq/L Carbon Dioxide 25.6 (21.0-32.0) meq/L BUN 19 H (7-18) mg/dL Creatinine 1.10 (0.60-1.30) mg/dL Calcium 9.5 (8.5-10.1) mg/dL Direct Bilirubin 0.2 (0.0-0.2) mg/dL Indirect Bilirubin 0.6 (0.0-0.8) mg/dL AST 117 H (15-37) U/L ALT 131 H (12-78) U/L Alkaline Phosphatase 90 (45-117) U/L Total Protein 8.7 H (6.4-8.2) g/dL Albumin 4.1 (3.4-5.0) g/dL Intake and Output 06/01/18 06/01/18 06/01/18 06:59 14:59 22:59 Other: # Voids 3 Date of Last Bowel Movement 05/31/18 Weight 126.5 kg Assessment and Plan - Plan Patient seen and examined. Zia reviewed by myself. I agree with radiology read of moderate area of anterolateral ischemia and normal LV systolic function, EF 53%. (Intermediate risk). His symptoms are highly atypical with chest pressure constant since " May 17" from awakening in AM until he goes to sleep at night with momentary episodes of dyspnea. Sounds like panic attacks? He does have underlying anxiety d/o. ECG was nonischemic. Trop neg x 3. I discussed findings in concert with his symptoms at length with him and his and offered transfer to [facility] for LHC in next 1-2 days versus guideline directed OMT and outpatient f/ u in 1 week to reassess symptoms. If still symptomatic at that time would pursue elective LHC and possible PCI if indicated. He has no contraindications to DAPT if PCI performed. Patient and his elected for trial of medical management. Ok for d/c tonight with ASA 81mg daily, metoprolol tartrate 25mg bid , atorvastatin 10mg daily. Would hold on long acting nitrates due to frequent cluster migraine HAs. Transaminitis is noted and likely due to fatty liver disease. Needs outpatient Abdominal u/s and echocardiogram.
[2018-06-01 08:57] LABS: Albumin 4.1 g/dL (3.4-5.0)
[2018-06-01] MEDS: Aspirin 325 MG Tablet PO SCH (08:59)
[2018-06-01] MEDS: Metoprolol Tartrate 25 MG Tablet PO SCH ×2 (09:00→18:44)
[2018-06-01 09:02] LABS: Total Protein 8.7 g/dL (6.4-8.2)
[2018-06-01 10:24] LABS: Chol/HDL Ratio 3.54 Ratio
--- NOTE | 2018-06-01 12:01 | P.PN ---
Subjective Interval history: Patient admitted to chest pain service for chest pain had lexiscan showed mild diease seen by cardiology and they are deciding on further work up . Patient has history of TIA and has already as outpatient seen neurology and has had unremarkable carotid ultrasound and MRI brain according to . Patient also has elevated LFT and has ? fatty liver based on liver biopsy believed due to excessive use of tylenol for headaches. Physical Exam Vital signs: Vital Signs 05/31/18 12:00 05/31/18 16:00 05/31/18 20:00 Temperature 97.7 F 97.8 F 97.3 F L Pulse Rate 78 91 H 104 H Respiratory Rate 21 21 20 Blood Pressure 135/76 130/86 118/63 Pulse Oximetry 97 95 97 05/31/18 21:00 06/01/18 00:00 06/01/18 04:00 Temperature 97.6 F 96.7 F L Pulse Rate 108 H 96 H 77 Respiratory Rate 20 Blood Pressure 154/75 H 109/54 L Pulse Oximetry 92 L 98 06/01/18 08:00 Temperature 97.7 F Pulse Rate 70 Respiratory Rate 18 Blood Pressure 134/79 Pulse Oximetry 18 L Intake & Output 05/31/18 06/01/18 06/01/18 18:59 06:59 18:59 Intake Total 0 / 0 Output Total 700 / 700 Balance -700 / -700 Weight 126.5 kg Intake: Oral 0 / 0 Output: Urine 700 / 700 Other: # Voids 3 Date of Last Bowel Movement 05/31/18 Narrative: GENERAL: SKIN: Warm and dry. HEAD: Normocephalic. EYES: No scleral icterus. No injection or drainage. NECK: Supple, trachea midline. No JVD or lymphadenopathy. CARDIOVASCULAR: Regular rate and rhythm without murmurs, gallops, or rubs. RESPIRATORY: Breath sounds equal bilaterally. No accessory muscle use. GASTROINTESTINAL: Abdomen soft, non-tender, nondistended. MUSCULOSKELETAL: No cyanosis, or edema. BACK: Nontender without obvious deformity. No CVA tenderness. Results - Labs CBC & Chem 7: 05/30/18 09:17 05/30/18 09:17 Laboratory Results - last 24 hr 06/01/18 06/01/18 08:35 08:35 Total Bilirubin 0.8 Direct Bilirubin 0.2 Indirect Bilirubin 0.6 AST 117 H ALT 131 H Alkaline Phosphatase 90 Total Protein 8.7 H Albumin 4.1 Triglycerides 88 Cholesterol 149 LDL Cholesterol, Calc 89 HDL Cholesterol 42.0 Cholesterol/HDL Ratio 3.54 Assessment and Plan - Assessment (1) Chest pain Code(s): R07.9 - Chest pain, unspecified Status: Acute Plan: cardiology has seen patient and will decide as to medications and further work up (2) Elevated LFTs Code(s): R94.5 - Abnormal results of liver function studies Status: Acute Plan: will get ultrasound abdomen also has elevated glucose will get A1C (3) TIA (transient ischemic attack) Code(s): G45.9 - Transient cerebral ischemic attack, unspecified Status: Acute Plan: work up already done as out patient with neurology will review that record - Plan await cardiac evaluation
[2018-06-01 12:53] LABS: Potassium 3.8 meq/L (3.5-5.1)
[2018-06-01 12:56] LABS: Calcium 9.5 mg/dL (8.5-10.1); Carbon Dioxide 25.6 meq/L (21.0-32.0)
[2018-06-01] MEDS: Acetaminophen 325 MG Tablet PO PRN (13:35)
--- NOTE | 2018-06-01 17:24 | ECHRPT ---
Indication: Shortness of breath CONCLUSIONS The left ventricular systolic function is low normal with an estimated ejection fraction in the rang e of 50- 55%. Mild concentric left ventricular hypertrophy. There is trace tricuspid valve regurgitation. Trivial pulmonary valve regurgitation. BP: / HR: 75 Rhythm: Sinus MEASUREMENTS (Male / Female) Normal Values Technical Quality:Fair 2D ECHO LV Diastolic Diameter PLAX 4.6 cm 4.2 - 5.9 / 3.9 - 5.3 cm LV Systolic Diameter PLAX 3.6 cm IVS Diastolic Thickness 1.2 cm 0.6 - 1.0 / 0.6 - 0.9 cm LVPW Diastolic Thickness 1.2 cm 0.6 - 1.0 / 0.6 - 0.9 cm LV Relative Wall Thickness 0.5 LVOT Diameter 2.1 cm M-MODE Aortic Root Diameter MM 3.3 cm LA Systolic Diameter MM 3.5 cm LA Ao Ratio MM 1.1 AV Cusp Separation MM 2.4 cm DOPPLER AV Peak Velocity 109.0 cm/s AV Peak Gradient 4.8 mmHg LVOT Peak Velocity 107.0 cm/s LVOT Peak Gradient 4.6 mmHg AV Area Cont Eq pk 3.4 cm Mitral E Point Velocity 79.5 cm/s Mitral A Point Velocity 54.8 cm/s Mitral E to A Ratio 1.5 LV E' Lateral Velocity 7.9 cm/s Mitral E to LV E' Lateral Ratio 10.1 LV E' Septal Velocity 4.3 cm/s Mitral E to LV E' Septal Ratio 18.5 TR Peak Velocity 147.0 cm/s TR Peak Gradient 8.6 mmHg Right Atrial Pressure 10.0 mmHg Pulmonary Artery Systolic Pressu 18.6 mmHg Right Ventricular Systolic Press 18.6 mmHg PV Peak Velocity 88.2 cm/s PV Peak Gradient 3.1 mmHg FINDINGS LEFT VENTRICLE The left ventricular systolic function is low normal with an estimated ejection fraction in the rang e of 50- 55%. Normal left ventricular size. Mild concentric left ventricular hypertrophy. RIGHT VENTRICLE The right ventricle was not well visualized. LEFT ATRIUM The left atrial size is upper limits of normal. RIGHT ATRIUM The right atrium is not well visualized. ATRIAL SEPTUM The interatrial septum not well visualized. AORTA The aortic root and proximal ascending aorta are normal in size on limited imaging. MITRAL VALVE Grossly normal mitral valve. No mitral valve stenosis or regurgitation. AORTIC VALVE Trileaflet aortic valve. No aortic valve stenosis or regurgitation. TRICUSPID VALVE Grossly normal There is trace tricuspid valve regurgitation. The estimated pulmonary arterial pressure is 18.6 mmHg. PULMONARY VALVE Trivial pulmonary valve regurgitation. VESSELS The inferior vena cava is normal in size. PERICARDIUM No pericardial effusion. Austen Chambers DO (Electronically Signed) Final Date:01 June 2018 17:23
--- NOTE | 2018-06-01 18:22 | P.DS ---
Date of admission: 05/31/18 15:15 Primary care physician: Francisco Burnham Attending physician on discharge: Ron Mcmahon Anticipated date of discharge: 06/01/18 Brief History from admission: Patient is a 53-year-old gentleman with a history of diverticulitis, hepatitis a and fatty liver, migraine and anxiety who presents to the emergency room department with a complaint of chest pain. He states the pain started initially 2 months ago with episodes of mid substernal chest pressure which is nonradiating and last up to 2 hours. The episodes are associated with shortness of breath and heart racing. He denies any radiation of the pressure or pain, diaphoresis. He has such episodes occur every day there does not appear to be any exertional component. Patient works out side with heavy equipment and has no chest pain correlating with these activities. The chest pain appears to occur at rest intermittently. It resolved spontaneously usually and today it was relieved with Nitropaste. It was not improved with nitro sublingual. On review of his EKG appears to be normal sinus rhythm without ischemic changes and cardiac troponins are negative so far, my review of his chest x-ray there is no cardiopulmonary acute finding. Patient is recommended for further observation due to atypical chest pain DS: Diagnosis - Discharge Diagnosis (1) Chest pain Status: Acute (2) Elevated LFTs Status: Chronic (3) TIA (transient ischemic attack) Status: Chronic DS: Summary Hospital Course: Patient was admitted with chest pain and under went workup with ekg and enzymes and was admitted to chest pain center. Patient also received nitroglycerin for pain, and noted on his lab work was elevated liver function tests. During admission to chest pain center patient had a 2D echo which essentially was unremarkable and underwent a Lexiscan which showed slight ischemic defect. Cardiology was consulted and felt that the patient could be followed medically and if any symptoms continue to develop will then be considered for cardiac catheterization. Case was discussed with cardiology and family was given an option whether they would want a cardiac catheterization in a.m. or prefer to see how the medical medicines work and he preferred to see how the medicines work in the medicines will be metoprolol 25 twice daily aspirin 325 twice daily atorvastatin 10 mg daily and to continue his home medicine and pantoprazole 40 mg a day. Of note patient has history of TIAs and he did have a neurological workup including a normal MRI and a normal carotid ultrasound test during this hospitalization he was on telemetry and showed no abnormal. He also has a history of elevated liver function tests and the liver function test are elevated due to a chronic liver disease related to Tylenol use. This was based on a liver biopsy had a few years ago. Before patient is discharged he will undergo a abdominal ultrasound to further check the liver. The results of which can be followed as an outpatient. Patient is to have follow-up with cardiology next week. Patient is to be off work at least until 06/08 2018 and this may be extended as per cardiology. - Time Spent with Patient Total time spent providing and/or coordinating discharge services: Greater than 30 minutes - Quality: VTE Deep Vein Thrombosis/Pulmonary Embolism Present on Admission: No Exam Vital signs: Vital Signs 05/31/18 20:00 05/31/18 21:00 06/01/18 00:00 Temperature 97.3 F L 97.6 F Pulse Rate 104 H 108 H 96 H Respiratory Rate 20 20 Blood Pressure 118/63 154/75 H Pulse Oximetry 97 92 L 06/01/18 04:00 06/01/18 08:00 06/01/18 12:00 Temperature 96.7 F L 97.7 F 97.0 F L Pulse Rate 77 70 76 Respiratory Rate 18 18 Blood Pressure 109/54 L 134/79 119/79 Pulse Oximetry 98 18 L 99 06/01/18 16:00 Temperature 97.6 F Pulse Rate 72 Respiratory Rate 18 Blood Pressure 116/66 Pulse Oximetry 98 Intake & Output 05/31/18 06/01/18 06/01/18 18:59 06:59 18:59 Intake Total 0 / 0 840 / 840 Output Total 700 / 700 Balance -700 / -700 840 / 840 Weight 126.5 kg Intake: Oral 0 / 0 840 / 840 Output: Urine 700 / 700 Other: # Voids 3 4 Date of Last Bowel Movement 05/31/18 # Bowel Movements 0 Narrative: GENERAL: SKIN: Warm and dry. HEAD: Normocephalic. EYES: No scleral icterus. No injection or drainage. NECK: Supple, trachea midline. No JVD or lymphadenopathy. CARDIOVASCULAR: Regular rate and rhythm without murmurs, gallops, or rubs. RESPIRATORY: Breath sounds equal bilaterally. No accessory muscle use. GASTROINTESTINAL: Abdomen soft, non-tender, nondistended. MUSCULOSKELETAL: No cyanosis, or edema. BACK: Nontender without obvious deformity. No CVA tenderness. Results Procedures completed during hospitalization: lexiscan 2d echo abdominal ultrasound Labs on day of discharge: Labs from last 24 hours 06/01/18 06/01/18 06/01/18 08:35 08:35 08:35 Sodium 137 Potassium 3.8 Chloride 103 Carbon Dioxide 25.6 Anion Gap 8 BUN 19 H Creatinine 1.10 Estimated GFR 70 L Random Glucose 162 H Hemoglobin A1c Pending Calcium 9.5 Total Bilirubin 0.8 Direct Bilirubin 0.2 Indirect Bilirubin 0.6 AST 117 H ALT 131 H Alkaline Phosphatase 90 Total Protein 8.7 H Albumin 4.1 Triglycerides Cholesterol LDL Cholesterol, Calc HDL Cholesterol Cholesterol/HDL Ratio 06/01/18 08:35 Sodium Potassium Chloride Carbon Dioxide Anion Gap BUN Creatinine Estimated GFR Random Glucose Hemoglobin A1c Calcium Total Bilirubin Direct Bilirubin Indirect Bilirubin AST ALT Alkaline Phosphatase Total Protein Albumin Triglycerides 88 Cholesterol 149 LDL Cholesterol, Calc 89 HDL Cholesterol 42.0 Cholesterol/HDL Ratio 3.54 - Impressions ITS Impressions Chest X-Ray 05/30/18 09:21 CONCLUSION: No acute cardiopulmonary disease. Myocardial Perfusion Scan Nuc Med 05/31/18 00:00 CONCLUSION: 1. Slight ischemia in the anterolateral wall. Discharge Plan - Discharge Disposition Patient Disposition: Discharge Home - Discharge Condition Condition: Stable - Discharge Order Discharge Orders: Discharge Order (Routine); Ordered 06/01/18 Ordered By: Ron Mcmahon - Discharge Details Anticipated Discharge Date: 06/01/18 Discharge Comment: home with follow up cardiology next week start asa 325, metoprolol 25 bid atorvastatin 10 all called in to [facility] - Physicians Team Primary Care Provider: Francisco Burnham Attending Provider: Ron Mcmahon Other Providers: Moisés Baca MD
--- NOTE | 2018-06-01 19:04 | US ---
EXAM DATE: 06/01/2018 6:45 PM EDT AGE/SEX: 53 years / Male INDICATIONS: Abnormal lab values. CLINICAL DATA: This is the patient's initial encounter. Patient reports that signs and symptoms have been present for 1 day and indicates a pain score of 0/10. MEDICAL/SURGICAL HISTORY: . Anxiety. Diabetes. Fatty liver. Hepatitis. Joint pain. Migraine. Tr ansient ischemic attack. None. COMPARISON: No prior exams available for comparison. MEASUREMENTS: Liver:__ 15.0 cm. Common Bile Duct:___ 6mm. Right Kidney:___10.2 x 6.8 x 5.8 cm. Left Kidney:___12.1 x 5.8 x 5.6 cm. Spleen:___12.7 cm. FINDINGS: Liver: Increased homogeneous echotexture without focal lesion or ductal dilation. Portal Vein: Hepatopedal flow seen in portal vein. Common Duct: No intraluminal mass or stone visualized. Gallbladder: Demonstrates no wall thickening or pericholecystic fluid. No stones visualized. Pancreas: The visualized portions are within normal limits Right Kidney: Normal echotexture and cortical thickness. No mass or hydronephrosis. Left Kidney: Normal echotexture and cortical thickness. No mass or hydronephrosis. Ascites: None Pleural Effusion: None Spleen: No focal lesion. Aorta: Non aneurysmal. IVC: Within normal limits Other: None. CONCLUSION: 1. Negative exam. No gallstones seen. Electronically signed by: Hector Culver MD 06/01/2018 7:03 PM EDT
== END 2018-06-01 19:00 | disposition home or self-care (01) ==
LOC: PHEDA 09:03 → PHED 09:03 → PH3 12:52
PROVIDERS: ADMIT Internal Medicine; ATTEND Internal Medicine